=== PATIENT | male | born 1945 | race Caucasian/White ===

== ENCOUNTER 2020-10-20 17:23 | Inpatient (IN) | payer OTHER ==
[~2020-10-20] VITALS: Ht 177.8 cm; Wt 99.8 kg
[2020-10-20] MEDS ORDERED: ASPirin-EC 81 mg tab PO ONE (18:15)
[2020-10-20 18:17] LABS: Magnesium 2.2 mg/dL (1.6-2.6)
[2020-10-20 18:18] LABS: Alanine Aminotransferase 40 U/L (16-61); Albumin 3.3 g/dL (3.4-5.0); Anion Gap 9 (5-15); Aspartate Aminotransferase 34 U/L (15-37); BUN/Creatinine Ratio 16.3; Blood Urea Nitrogen 28 mg/dL (7-18); Calcium 8.8 mg/dL (8.5-10.1); Carbon Dioxide 28 mmol/L (21-32); Chloride 105 mmol/L (98-107); GFR African American 50 mL/min; GFR Non-African American 41 mL/min; Glucose 97 mg/dL (74-106); Potassium 4.2 mmol/L (3.5-5.1); Sodium 142 mmol/L (136-145)
[2020-10-20 18:21] LABS: Alkaline Phosphatase 150 U/L (45-117); Basophils # (auto) 0 10 ^3/uL (0-0.2); Basophils % (auto) 0.4 % (0.0-2.0); Bilirubin, Total 0.5 mg/dL (0.2-1.0); Eosinophils # (auto) 0.2 10 ^3/uL (0-0.8); Eosinophils % (auto) 2.2 % (0.0-7.0); Hematocrit 42.3 % (41.0-53.0); Hemoglobin 14.3 g/dL (13.5-17.5); Lymphocytes # (auto) 0.9 10 ^3/uL (0.4-5.4); Lymphocytes % (auto) 12.5 % (10.0-50.0); Mean Corpuscular Hemoglobin 33.6 pg (28.0-32.0); Mean Corpuscular Hgb Conc. 33.8 g/dL (32.0-36.0); Mean Corpuscular Volume 99.4 fL (80.0-100.0); Monocytes # (auto) 0.5 10 ^3/uL (0-1.3); Monocytes % (auto) 6.8 % (0.0-12.0); Neutrophils # (auto) 5.5 10 ^3/uL (1.6-8.6); Neutrophils % (auto) 78.1 % (37.0-80.0); Red Blood Cells 4.26 10^6/uL (4.5-5.90); Red Cell Distribution Width 13.9 % (11.8-14.3); Total Protein 6.3 g/dL (6.4-8.2); White Blood Cell 7.1 10^3/uL (4.4-10.8)
[2020-10-20 18:34] LABS: INR 1.05 (0.9-1.15); Partial Thromboplastin Time 27.3 sec (23.0-31.2)
[2020-10-20] MEDS ORDERED: CLOPIDOGREL BISULFATE 75 MG TAB PO ONE (22:45)
[2020-10-20] MEDS ORDERED: NITROGLYCERIN 0.4 MG SL TAB SL PRN (22:45)
[2020-10-20] MEDS ORDERED: MORPHINE SULFATE INJECTION 2 MG/ML SYRG IV PRN (22:45)
[2020-10-20] MEDS ORDERED: ONDANSETRON HCL 4 MG/2 ML VIAL IV PRN (22:45)
[2020-10-20] MEDS ORDERED: HEPARIN SODIUM (PORCINE) 5000 UNITS/ML 1ML VIAL IV ONE (22:45)
[2020-10-21] VITALS (8 sets, daily range): BP systolic 111–138; BP diastolic 62–97
[2020-10-21] MEDS: HEPARIN DRIP/D5W 100UNITS/ML 250 ML IV SCH ×2 (01:02→14:06)
[2020-10-21 07:09] LABS: Basophils # (auto) 0.1 10 ^3/uL (0-0.2); Basophils % (auto) 0.8 % (0.0-2.0); Eosinophils # (auto) 0.2 10 ^3/uL (0-0.8); Eosinophils % (auto) 3.6 % (0.0-7.0); Hematocrit 38.7 % (41.0-53.0); Hemoglobin 13.3 g/dL (13.5-17.5); Lymphocytes # (auto) 1.3 10 ^3/uL (0.4-5.4); Lymphocytes % (auto) 19.3 % (10.0-50.0); Mean Corpuscular Hemoglobin 33.6 pg (28.0-32.0); Mean Corpuscular Hgb Conc. 34.3 g/dL (32.0-36.0); Monocytes # (auto) 0.5 10 ^3/uL (0-1.3); Monocytes % (auto) 7.4 % (0.0-12.0); Neutrophils # (auto) 4.7 10 ^3/uL (1.6-8.6); Neutrophils % (auto) 68.9 % (37.0-80.0); Nucleated Red Blood Cells % 0.1 %; Red Blood Cells 3.95 10^6/uL (4.5-5.90); Red Cell Distribution Width 13.9 % (11.8-14.3); White Blood Cell 6.8 10^3/uL (4.4-10.8)
[2020-10-21 07:12] LABS: INR 1.1 (0.9-1.15); Partial Thromboplastin Time 62.3 sec (23.0-31.2)
[2020-10-21 07:17] LABS: Calcium 9.1 mg/dL (8.5-10.1)
[2020-10-21 07:19] LABS: BUN/Creatinine Ratio 16.2
[2020-10-21] MEDS ORDERED: FAMOTIDINE 20 MG TAB PO SCH (10:00)
[2020-10-21] MEDS: FAMOTIDINE 20 MG TAB PO SCH (10:57)
[2020-10-21] MEDS: FUROSEMIDE 40 MG TAB PO SCH (10:57)
[2020-10-21] MEDS: LISINOPRIL 5 MG TAB PO SCH (10:58)
[2020-10-21] MEDS ORDERED: ASPirin 81 mg TAB PO ONE (11:30)
[2020-10-21 13:55] LABS: INR 1.08 (0.9-1.15); Partial Thromboplastin Time 69.5 sec (23.0-31.2)
[2020-10-21 14:52] LABS: INR 1.09 (0.9-1.15)
[2020-10-21] MEDS ORDERED: ENOXAPARIN SOD 100 MG/1 ML SYRINGE SC ONE (17:15)
[2020-10-21] MEDS: IPRATROPIUM BROM 0.5 MG/2.5ML INH SOL NEB SCH (19:22)
[2020-10-21] MEDS: ALBUTEROL SULF 2.5 MG/0.5ML(0.5%) NEB SOLN NEB SCH (19:22)
[2020-10-21] MEDS ORDERED: guaiFENesin-DM 100/10mg/5ml SYR PO PRN (20:45)
[2020-10-21] MEDS: METOPROLOL TARTRATE 25 MG TAB PO SCH (21:42)
[2020-10-21] MEDS ORDERED: ATORVASTATIN 20 MG TAB PO SCH (22:00)
[2020-10-22] MEDS: ALBUTEROL SULF 2.5 MG/0.5ML(0.5%) NEB SOLN NEB SCH ×3 (01:17→11:30)
[2020-10-22] MEDS: IPRATROPIUM BROM 0.5 MG/2.5ML INH SOL NEB SCH ×3 (01:18→11:30)
[2020-10-22 05:00] VITALS: BP 120/56
[2020-10-22] MEDS: ENOXAPARIN SOD 100 MG/1 ML SYRINGE SC SCH ×2 (05:00→17:00)
[2020-10-22 08:17] VITALS: BP 105/45
[2020-10-22] MEDS: FUROSEMIDE 40 MG TAB PO SCH (09:55)
[2020-10-22] MEDS: LISINOPRIL 5 MG TAB PO SCH (09:56)
[2020-10-22] MEDS: FAMOTIDINE 20 MG TAB PO SCH (09:56)
[2020-10-22] MEDS: METOPROLOL TARTRATE 25 MG TAB PO SCH (09:56)
[2020-10-22] MEDS ORDERED: ASPirin 81 mg TAB PO SCH (10:00)
[2020-10-22 12:47] VITALS: BP 114/72
[2020-10-22 16:45] VITALS: BP 96/36
[2020-10-22 17:58] VITALS: BP 100/56
== END 2020-10-22 18:54 | disposition short-term general hospital (02) | DRG 280 ==
LOC: EDBD 17:23 → ER 17:23 → TELE 22:36 → TELE-WESTW 23:43
PROVIDERS: ADMIT Nurse Practitioner; ATTEND Family Medicine
DX: I21.4 Non-ST elevation (NSTEMI) myocardial infarction (principal); I26.99 Other pulmonary embolism without acute cor pulmonale; I50.43 Acute on chronic combined systolic (congestive) and diastolic (congestive) heart failure; I13.0 Hypertensive heart and chronic kidney disease with heart failure and stage 1 through stage 4 chronic kidney disease, or unspecified chronic kidney disease; E44.0 Moderate protein-calorie malnutrition; J98.11 Atelectasis; I48.20 Chronic atrial fibrillation, unspecified; Z20.822 Contact with and (suspected) exposure to COVID-19; D69.6 Thrombocytopenia, unspecified; N18.9 Chronic kidney disease, unspecified; J44.9 Chronic obstructive pulmonary disease, unspecified; E78.00 Pure hypercholesterolemia, unspecified; I25.10 Atherosclerotic heart disease of native coronary artery without angina pectoris; E78.5 Hyperlipidemia, unspecified; E66.9 Obesity, unspecified; Z85.118 Personal history of other malignant neoplasm of bronchus and lung; Z90.2 Acquired absence of lung [part of]; Z86.16 Personal history of COVID-19; Z87.01 Personal history of pneumonia (recurrent); Z85.51 Personal history of malignant neoplasm of bladder; Z68.31 Body mass index [BMI] 31.0-31.9, adult; Z91.14 Patient's other noncompliance with medication regimen; Z79.899 Other long term (current) drug therapy
CPT/HCPCS: 36415; 71045; 78582; 80048; 80053; 83735; 83880; 84484; 85025; 85379; 85610; 85730; 87426; 93005; 93306; 94640; 96365; 96375; 99291; G0378; J7060

== ENCOUNTER 2020-11-26 21:00 | Emergency (ER) | payer OTHER ==
[~2020-11-26] VITALS: Ht 177.8 cm; Wt 99.8 kg
[2020-11-26 21:05] VITALS: BP 0/0
== END 2020-11-27 18:42 ==
LOC: ER 21:00 → EDBD 21:00 → ER 11-27 18:42
DX: I46.9 Cardiac arrest, cause unspecified (principal); J44.9 Chronic obstructive pulmonary disease, unspecified; I25.2 Old myocardial infarction; I11.0 Hypertensive heart disease with heart failure; I50.9 Heart failure, unspecified; I25.10 Atherosclerotic heart disease of native coronary artery without angina pectoris; E78.5 Hyperlipidemia, unspecified; Z85.118 Personal history of other malignant neoplasm of bronchus and lung
CPT/HCPCS: 92950; 99291